=== PATIENT | female | born 1935 | race Native Hawaiian/Other Pacific Islander ===

== ENCOUNTER 2016-11-08 20:36 | Emergency (ER) | payer OTHER ==
[~2016-11-08] VITALS: Ht 157.5 cm; Wt 56.7 kg
[2016-11-08 20:55] VITALS: BP 178/67; TEMP 98
[2016-11-08 21:16] LABS: PLATELET COUNT 266 K/uL (152-353)
[2016-11-08 21:20] LABS: POTASSIUM 3.9 mmol/L (3.6-5.2)
[2016-11-08 21:34] LABS: PARTIAL THROMBOPLASTIN TIME 23.6 SECONDS (24.5-33.6)
[2016-11-09 00:08] VITALS: BP 123/57
== END 2016-11-09 00:15 | disposition left against medical advice (07) ==
LOC: ED 20:36 → ICU 23:25 → ED 23:25 → ICU 11-09 00:08
PROVIDERS: Specialist
DX: K92.0 Hematemesis (principal)
CPT/HCPCS: 36415; 43754; 80053; 81000; 83605; 83735; 84100; 84484; 85002; 85027; 85610; 85730; 86850; 86900; 86901; 93005; 96361; 96365; 96366; 96375; 99285; J2780; J3490; J7040